=== PATIENT | female | born 1960 | race Native Hawaiian/Other Pacific Islander ===

== ENCOUNTER 2022-08-04 12:03 | Emergency (ER) | payer OTHER ==
[~2022-08-04] VITALS: Ht 170.2 cm; Wt 68.0 kg
[2022-08-04 12:59] LABS: PLATELET COUNT 347 K/uL (152-353)
[2022-08-04 13:04] LABS: POTASSIUM 5.1 mmol/L (3.6-5.2)
[2022-08-04 18:30] VITALS: TEMP 98.9
[2022-08-04 19:30] VITALS: BP 91/62
== END 2022-08-04 19:45 | disposition short-term general hospital (02) ==
LOC: ED 12:03
PROVIDERS: Emergency Medicine Emergency Medical Services
DX: R06.89 Other abnormalities of breathing (principal); J18.9 Pneumonia, unspecified organism; Z72.0 Tobacco use; J84.10 Pulmonary fibrosis, unspecified; Z11.52 Encounter for screening for COVID-19
CPT/HCPCS: 36415; 36600; 51702; 80053; 80307; 82805; 83735; 83880; 84484; 85027; 85379; 85610; 87040; 87502; 87635; 93005; 94660; 94664; 96360; 96374; 96375; 99285; J1160; J1940; J2060; J2310; J3490; Q9963; U0003